=== PATIENT | male | born 1965 | race Native Hawaiian/Other Pacific Islander ===

== ENCOUNTER 2018-08-30 14:01 | Emergency (ER) | payer MEDICAID, OTHER ==
[~2018-08-30] VITALS: Ht 177.8 cm; Wt 81.6 kg
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
[2018-08-30 14:08] VITALS: BP 155/100
[2018-08-30] MEDS ORDERED: Ketorolac 30mg Inj IM ONE (15:00)
[2018-08-30] MEDS ORDERED: Methocarbamol 750mg tab ORAL ONE (15:00)
--- NOTE | 2018-08-30 15:00 | NUR ---
ED Nurse Note: Pt went down for CT.
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
--- NOTE | 2018-08-30 15:13 | NUR ---
ED Nurse Note: Pt back from CT.
[2018-08-30] MEDS ORDERED: ROBAXIN-750750 MG PO (16:23)
[2018-08-30 16:37] VITALS: BP 150/98
--- NOTE | 2018-08-30 16:37 | NUR ---
ER DISCHARGE NOTE: Patient is cleared to be discharged per ERMD, pt is aox4, on room air, with stable vital signs. pt was given dc and prescription instructions, pt was able to verbalize understanding, pt id band removed without complications. pt is able to ambulate with steady gait. pt took all belongings.
--- NOTE | 2018-08-30 19:17 | Diagnostic Imaging Report ---
Indication: Neck pain. Technique: Continuous helical imaging of the cervical spine was obtained transaxially from the skull base to the upper thoracic spine. 2-D coronal and sagittal reformatted images were obtained. Automatic Exposure Control was utilized. Total Dose length Product (DLP): 485.[address] Dose Index Volume (CTDIvol): 21.88 mGy Comparison: None Findings: There is no acute fracture or malalignment identified. There is no soft tissue swelling identified. Mild uncovertebral arthritis is demonstrated at multiple levels. Some of the intervertebral discs show mild narrowing. Impression: No acute injury Mild spondylosis The CT scanner at [facility] is accredited by the [employer] and the scans are performed using dose optimization techniques as appropriate to a performed exam including Automatic Exposure control.
--- NOTE | 2018-08-30 19:17 | Diagnostic Imaging Report ---
Indication: Back pain Technique: Continuous helical transaxial imaging of the lumbar spine was obtained from the lung bases to the pubic symphysis. No IV contrast was administered. Coronal 2-D reformats were also obtained. Study obtained in a Siemens sensation [address] Total Dose length Product (DLP): 463.[address] Dose Index Volume (CTDIvol): 15.73 mGy Comparison: None Findings: There is no evidence of an acute fracture or malalignment. Height and configuration of the vertebral bodies and intervertebral discs are within normal limits. Minimal vertebral endplate spurs are noted. The facets are unremarkable. There is no soft tissue swelling. Mild aortoiliac calcifications are noted consistent with atherosclerotic disease Impression: Negative lumbar spine CT. No acute injury The CT scanner at [facility] is accredited by the [employer] and the scans are performed using dose optimization techniques as appropriate to a performed exam including Automatic Exposure control.
== END 2018-08-30 16:38 | disposition home or self-care (01) ==
LOC: EDBD 14:01 → EMR 15:17
DX: S16.1XXA Strain of muscle, fascia and tendon at neck level, initial encounter (principal); V43.52XA Car driver injured in collision with other type car in traffic accident, initial encounter; Y92.410 Unspecified street and highway as the place of occurrence of the external cause; M54.5 Low back pain
CPT/HCPCS: 72125; 72131; 96372; 99284; J1885